=== PATIENT | female | born 1990 | race Caucasian/White ===

== ENCOUNTER 2016-11-25 20:45 | Emergency (ER) | payer SELFPAY ==
--- NOTE | 2016-11-25 21:35 | ER Document Report ---
ED Medical Screen (RME) - General Chief Complaint: Foot Injury Stated Complaint: RIGHT FOOT PAIN Time seen by provider: 21:33 Mode of Arrival: Wheelchair Information source: Patient Notes: 26-year-old female presents to ED for a right foot and ankle injury at 11:40 AM today. States she went out to get her 4 year-old off the bus and rolled her ankle. She states she had shoes on at the time. Last menstrual period she states she has not had a period since July and she had IUD placed I have greeted and performed a rapid initial assessment of this patient. A comprehensive ED assessment and evaluation of the patient, analysis of test results and completion of medical decision making process will be conducted by an additional ED providers. TRAVEL OUTSIDE OF THE [place] IN LAST 30 DAYS: No - Related Data Allergies/Adverse Reactions: banana [Banana] Allergy (Intermediate, Verified 07/26/16 07:54) Hives latex [Latex] Allergy (Intermediate, Verified 07/26/16 07:54) Swelling Past Medical History - Immunizations Hx Diphtheria, Pertussis, Tetanus Vaccination: Yes
[2016-11-25] MEDS ORDERED: IBUPROFEN 800 MG TABLET PO ONE (21:36)
--- NOTE | 2016-11-26 00:32 | ER Document Report ---
HPI - HPI Patient complains to provider of: right ankle injury Pain Level: 5 Context: Patient is a 26-year-old female that comes emergency department for chief complaint of pain in her right ankle that happened about half a day ago, patient states that she stepped off a step and inverted her ankle causing a pop and sharp pain. It is difficult to walk on the ankle. She denies any other injuries. Patient has an IUD in place. - CONSTITUTIONAL Constitutional: DENIES: Fever, Chills - EENT EENT: DENIES: Sore Throat, Ear Pain, Nasal Drainage-Clear, Nasal Drainage- Purulent, Congestion, Eye problems - NEURO Neurology: DENIES: Headache, Weakness, Vision blurred, Dizzinesss / Vertigo - CARDIOVASCULAR Cardiovascular: DENIES: Chest pain - RESPIRATORY Respiratory: DENIES: Trouble Breathing, Coughing - GASTROINTESTINAL Gastrointestinal: DENIES: Abdominal Pain, Nausea, Patient vomiting, Diarrhea, Constipation, Black / Bloody Stools - URINARY Urinary: DENIES: Dysuria, Urgency, Frequency - REPRODUCTIVE Reproductive: DENIES: :, Postmenopausal, Abnormal bleeding / discharge - MUSCULOSKELETAL Musculoskeletal: REPORTS: Extremity pain - right ankle. DENIES: Back Pain, Neck Pain, Swelling - DERM Skin Color: Normal, [place] Skin Problems: None Past Medical History - General Information source: Patient - Social History Smoking Status: Never Smoker Cigarette use (# per day): No Chew tobacco use (# tins/day): No Frequency of alcohol use: Occasional Drug Abuse: None Lives with: Family Family History: None Patient has suicidal ideation: No Patient has homicidal ideation: No - Medical History Medical History: Negative Renal/ Medical History: Denies: Hx Peritoneal Dialysis Surgical Hx: Negative - Immunizations Hx Diphtheria, Pertussis, Tetanus Vaccination: Yes Vertical Provider Document - CONSTITUTIONAL General Appearance: WD/WN, No Apparent Distress - INFECTION CONTROL TRAVEL OUTSIDE OF THE [place] IN LAST 30 DAYS: No - HEENT HEENT: Atraumatic, Normocephalic - NECK Neck: Normal Inspection - RESPIRATORY Respiratory: Breath Sounds Normal, No Respiratory Distress O2 Sat by Pulse Oximetry: 98 - CARDIOVASCULAR Cardiovascular: Regular Rate, Regular Rhythm - GI/ABDOMEN Gastrointestinal: Abdomen Soft, Abdomen Non-Tender - MUSCULOSKELETAL/EXTREMETIES Musculoskeletal/Extremeties: Tender - Patient is tender with slight swelling over the dorsal lateral aspect of the right foot, range of motion of the ankle is intact, normal distal sensation and capillary refill, normal foot, leg, knee exam otherwise - NEURO Level of Consciousness: Awake, Alert, Appropriate Course - Re-evaluation Re-evalutation: Soft tissue swelling over the dorsal lateral aspect of the right foot, unremarkable exam otherwise, patient states she has naproxen at home to take for this. Provided with crutches. - Vital Signs Vital signs: Temp Pulse Resp BP Pulse Ox 98.3 F 88 126/62 H 98 11/25/16 20:50 11/25/16 20:50 11/25/16 20:50 11/25/16 20:50 - Diagnostic Test Radiology reviewed: Image reviewed, Reports reviewed Discharge - Discharge Clinical Impression: Right ankle injury Qualifiers: Encounter type: initial encounter Qualified Code(s): S99.911A - Unspecified injury of right ankle, initial encounter Condition: Stable Disposition: HOME, SELF-CARE Additional Instructions: No fracture is seen on x-ray imaging. Examination and symptoms are consistent with soft tissue swelling from a bad sprain. Take 500 mg of naproxen twice a day with food, ice your foot 3-4 times a day for 15 minutes, elevate your foot, use crutches to get around for the next 2-3 days. Follow-up with primary care. Return to the emergency department for any concerning symptoms.
[2016-11-26 00:47] VITALS: BP 137/84
== END 2016-11-26 00:47 | disposition home or self-care (01) ==
LOC: ER 20:45
DX: S99.911A Unspecified injury of right ankle, initial encounter (principal); X50.0XXA Overexertion from strenuous movement or load, initial encounter; Z97.5 Presence of (intrauterine) contraceptive device
CPT/HCPCS: 99283

== ENCOUNTER 2018-11-23 23:10 | Emergency (ER) | payer SELFPAY ==
--- NOTE | 2018-11-24 00:55 | ER Document Report ---
ED Fever - General Chief Complaint: Sore Throat Stated Complaint: SORE THROAT Time Seen by Provider: 11/24/18 00:41 Mode of Arrival: Ambulatory Information source: Patient Notes: Patient is a 28-year-old female with no significant past medical history who presents with fever and sore throat for the past 2 days. Patient denies coughing, reports her boyfriend has similar symptoms, no shortness of breath. Otherwise patient denies chest pain or any other symptom. TRAVEL OUTSIDE OF THE [place] IN LAST 30 DAYS: No - HPI Onset: Other - 2 days ago Onset/Duration: Gradual Quality of pain: Achy Severity: Moderate Pain Level: 1 Associated symptoms: Fever. denies: Nonproductive cough, Productive cough Similar symptoms previously: No Recently seen / treated by doctor: No - Related Data Allergies/Adverse Reactions: banana [Banana] Allergy (Intermediate, Verified 07/26/16 07:54) Hives latex [Latex] Allergy (Intermediate, Verified 07/26/16 07:54) Swelling Past Medical History - General Information source: Patient - Social History Smoking Status: Current Every Day Smoker Chew tobacco use (# tins/day): No Frequency of alcohol use: None Drug Abuse: None Lives with: Family Family History: None Patient has suicidal ideation: No Patient has homicidal ideation: No - Past Medical History Cardiac Medical History: Reports: None Pulmonary Medical History: Reports: None EENT Medical History: Reports: None Neurological Medical History: Reports: None Endocrine Medical History: Reports: None Renal/ Medical History: Reports: None. Denies: Hx Peritoneal Dialysis Malignancy Medical History: Reports: None GI Medical History: Reports: None Musculoskeletal Medical History: Reports None Skin Medical History: Reports None Psychiatric Medical History: Reports: None, Hx Depression - post depression Traumatic Medical History: Reports: None Infectious Medical History: Reports: None Surgical Hx: Negative Past Surgical History: Reports: None - Immunizations Immunizations up to date: Yes Hx Diphtheria, Pertussis, Tetanus Vaccination: Yes History of Influenza Vaccine for 08/2017 - 01/2018 Season: Unknown Review of Systems - Review of Systems Constitutional: See HPI, Fever EENT: See HPI, Throat pain Cardiovascular: No symptoms reported Respiratory: No symptoms reported Gastrointestinal: No symptoms reported Genitourinary: No symptoms reported Female Genitourinary: No symptoms reported Musculoskeletal: No symptoms reported Skin: No symptoms reported Hematologic/Lymphatic: No symptoms reported Neurological/Psychological: No symptoms reported -: Yes All other systems reviewed and negative Physical Exam - Vital signs Vitals: Temp Pulse Resp BP Pulse Ox 99.3 F 114 H 18 128/71 H 96 11/23/18 23:17 11/23/18 23:17 11/23/18 23:17 11/23/18 23:17 11/23/18 23:17 Interpretation: Normal - Notes Notes: Well-appearing in no acute distress - General General appearance: Appears well, Alert - HEENT Head: Normocephalic, Atraumatic Eyes: Normal Pupils: PERRL Tympanic membrane: Normal Sinus: Normal Nasal: Normal Mucous membranes: Normal Pharynx: Erythema, Tonsillar hypertrophy, Other - No palatal petechiae present - Respiratory Respiratory status: No respiratory distress Chest status: Nontender Breath sounds: Normal Chest palpation: Normal - Cardiovascular Rhythm: Regular Heart sounds: Normal auscultation Murmur: No - Abdominal Inspection: Normal Distension: No distension Bowel sounds: Normal Tenderness: Nontender Organomegaly: No organomegaly - Rectal Notes: Deferred - Genitourinary Notes: Deferred - Back Back: Normal, Nontender - Extremities General upper extremity: Normal inspection, Nontender, Normal color, Normal ROM, Normal temperature General lower extremity: Normal inspection, Nontender, Normal color, Normal ROM, Normal temperature, Normal weight bearing. No: Anthony's sign - Neurological Neuro grossly intact: Yes Cognition: Normal Orientation: AAOx4 Yves Coma Scale Eye Opening: Spontaneous Yves Coma Scale Verbal: Oriented [place] Coma Scale Motor: Obeys Commands [place] Coma Scale Total: 15 Speech: Normal Motor strength normal: LUE, RUE, LLE, RLE Sensory: Normal - Psychological Associated symptoms: Normal affect, Normal mood - Skin Skin Temperature: Warm Skin Moisture: Dry Skin Color: Normal Course - Re-evaluation Re-evalutation: 11/24/18 01:42 Most likely viral etiology. Will obtain rapid strep swab and reassess after intramuscular Decadron. 11/24/18 02:02 Rapid strep test is positive. Patient will be given a dose of intramuscular penicillin and will be discharged home with return precautions and follow-up as needed. Patient voices both understanding and agreeing with the plan. - Vital Signs Vital signs: Temp Pulse Resp BP Pulse Ox 99.3 F 114 H 18 128/71 H 96 11/23/18 23:17 11/23/18 23:17 11/23/18 23:17 11/23/18 23:17 11/23/18 23:17 Discharge - Discharge Clinical Impression: Streptococcal pharyngitis Fever Qualifiers: Fever type: unspecified Qualified Code(s): R50.9 - Fever, unspecified Condition: Good Disposition: HOME, SELF-CARE Instructions: Strep Throat (OM), Family Physicians / Practices Additional Instructions: Please follow-up with your regular physician in 1 week. Return to the emergency department if you experience difficulty swallowing, increasing fevers unrelieved with either Tylenol or ibuprofen, or have any other concerning sy mptoms. Print Language: [place]
[2018-11-24] MEDS ORDERED: DEXAMETHASONE SOD PHOS INJ 10 MG/1 ML VIAL IM ONE (01:42)
[2018-11-24] MEDS ORDERED: PENICILLIN G BENZATHINE 1.2 MILLION UNIT/2 ML DISP.SYRIN IM ONE (02:03)
[2018-11-24 02:27] VITALS: BP 122/68
== END 2018-11-24 02:29 | disposition home or self-care (01) ==
LOC: ER 23:10
DX: J02.0 Streptococcal pharyngitis (principal); R50.9 Fever, unspecified; F17.200 Nicotine dependence, unspecified, uncomplicated
CPT/HCPCS: 99283; 96372; 87880; J0561; J1100